=== PATIENT | female | born 1945 | race Caucasian/White ===

== ENCOUNTER 2023-02-16 09:25 | Inpatient (IN) | payer MEDICARE ==
[~2023-02-16] VITALS: Ht 165.1 cm; Wt 76.0 kg
[2023-02-16 09:54] LABS: BASOPHILS # (AUTO) 0.1 X10'3 (0-0.2); BASOPHILS % (AUTO) 0.9 % (0-1); EOSINOPHILS # (AUTO) 0.1 X10'3 (0-0.9); EOSINOPHILS % (AUTO) 1.6 % (0-6); HEMATOCRIT 43.2 % (35.0-45.0); HEMOGLOBIN 14.4 g/dl (12.0-16.0); LYMPHOCYTES # (AUTO) 1.7 X10'3 (1.1-4.8); LYMPHOCYTES % (AUTO) 27.7 % (21-51); MEAN CORPUSCULAR HEMOGLOBIN 29.8 PG (27.0-31.0); MEAN CORPUSCULAR HGB CONC 33.2 g/dL (33.0-36.5); MEAN CORPUSCULAR VOLUME 89.8 FL (78-98); MEAN PLATELET VOLUME 7.7 FL (7.4-10.4); MONOCYTES # (AUTO) 0.4 X10'3 (0-0.9); MONOCYTES % (AUTO) 7.3 % (2-12); NEUTROPHILS # (AUTO) 3.8 X10'3 (1.8-7.7); NEUTROPHILS % (AUTO) 62.5 % (42-75); PLATELET COUNT 308 X10'3 (140-440); RED BLOOD COUNT 4.82 X10'6 (4.20-5.60); WHITE BLOOD COUNT 6.1 X10'3 (4.5-11.0)
[2023-02-16 10:07] LABS: ALANINE AMINOTRANSFERASE 29 U/L (12-78); ALBUMIN 3.9 G/DL (3.4-5.0); ALKALINE PHOSPHATASE 111 IU/L (46-116); ANION GAP 12 (8-16); ASPARTATE AMINO TRANSFERASE 18 U/L (10-37); BLOOD UREA NITROGEN 17 MG/DL (7-18); BUN/CREATININE RATIO 19.1 (10.0-20.0); CALCIUM 9.2 MG/DL (8.5-10.1); CHLORIDE 105 MMOL/L (99-107); CREATININE 0.89 MG/DL (0.40-0.90); GLUCOSE 97 MG/DL (70-104); MAGNESIUM 2.1 MG/DL (1.5-2.4); POTASSIUM 3.7 MMOL/L (3.5-5.1); SODIUM 141 MMOL/L (135-145); TOTAL CARBON DIOXIDE 23.7 MMOL/L (24-32); eCRCL 48 ML/MIN; eGFR 62 ML/MIN
[2023-02-16] MEDS ORDERED: iohexol 350MG/ML 100ml bottle IV ONE (14:38)
[2023-02-16 15:28] LABS: THYROID STIMULATING HORMONE 1.31 ulU/ml (0.34-4.50)
[2023-02-16] MEDS ORDERED: magnesium Cl slow-release 64mg tablet PO PRN (16:25)
[2023-02-16] MEDS ORDERED: acetaminophen 325mg tablet PO PRN (16:25)
[2023-02-16] MEDS ORDERED: potassium Cl 40MEQ/1/2NS 520ml 520 ML IV PRN (16:25)
[2023-02-16] MEDS ORDERED: magnesium 2GM in 50ml NS 50 ML IV PRN (16:25)
[2023-02-16] MEDS ORDERED: ondansetron/PF 4mg/2ml inj IV PRN (16:25)
[2023-02-16] MEDS ORDERED: magnesium hydroxide 30ml (MOM) UD suspension PO PRN (16:25)
[2023-02-16] MEDS ORDERED: potassium Cl 20 mEq SR tablet PO PRN ×2 (16:25)
[2023-02-16] MEDS ORDERED: magnesium 4gm in 100ml NS 100 ML IV PRN (16:25)
[2023-02-16] MEDS ORDERED: mag hydrox/Alum hydrox/simeth 30ml oral suspension PO PRN (16:25)
[2023-02-16] MEDS: normal saline 1000ml 1,000 ML IV SCH (17:12)
[2023-02-16 17:14] LABS: BILIRUBIN,URINE NEGATIVE (Neg); CLARITY,URINE SLIGHTLY CLOUDY (Clear); COLOR,URINE YELLOW (Yellow); GLUCOSE, URINE NEGATIVE (Neg); KETONES,URINE TRACE mg/dl (Neg); LEUKOCYTE ESTERASE ,URINE NEGATIVE (Neg); NITRITES, URINE NEGATIVE (Neg); OCCULT BLOOD,URINE SMALL (Neg); PH,URINE 6.5 (4.8-8.0); PROTEIN,URINE NEGATIVE (Neg); UROBILINOGEN,URINE 0.2 E.U/dL (0.2-1.0)
[2023-02-16 17:19] LABS: UA COLLECTION TYPE CLN CATCH MIDSTREAM
[2023-02-16 17:20] LABS: SQUAMOUS EPITHELIAL CELL,UR MANY /LPF (FEW)
[2023-02-16 17:22] LABS: TRANSITIONAL EPI CELLS,URINE MODERATE /HPF
[2023-02-16 17:23] LABS: HYALINE CASTS 0-3 /LPF (NEGATIVE)
[2023-02-16 17:24] LABS: WBC,URINE 30-50 /HPF (0-4)
[2023-02-16 17:26] LABS: BACTERIA,URINE FEW /HPF (Neg)
[2023-02-16 17:29] LABS: MUCUS STRANDS FEW /LPF (Neg)
[2023-02-16 17:30] LABS: WBC CLUMPS,URINE FEW /HPF (NEGATIVE)
[2023-02-16 17:32] LABS: RBC,URINE 20-50 /HPF (0-2)
[2023-02-16 18:06] LABS: URINE AMPHETAMINE SCREEN NEGATIVE (Neg); URINE BARBITUATE SCREEN NEGATIVE (Neg); URINE BENZODIAZEPINES SCREEN NEGATIVE (Neg); URINE CANNABINOID SCREEN NEGATIVE (Neg); URINE COCAINE SCREEN NEGATIVE (Neg); URINE METHADONE SCREEN NEGATIVE (Neg); URINE OPIATE SCREEN NEGATIVE (Neg); URINE PHENCYCLIDINE SCREEN NEGATIVE (Neg)
[2023-02-16] MEDS ORDERED: DUPI300P SUBCUT (18:45)
[2023-02-16 19:04] LABS: HEMOGLOBIN A1C 5.6 % (4.5-6.2)
[2023-02-16] MEDS: HYDROcodone/acetaminophen 5mg/325mg tablet PO PRN (19:17)
[2023-02-16] MEDS: amLODIPine 5mg tablet PO SCH (19:18)
[2023-02-16] MEDS: K and/or MAG REPLACEMENT MC SCH (19:29)
[2023-02-16 19:33] LABS: APTT 28 SECONDS (22-32); PROTHROMBIN TIME 10.7 SECONDS (9.0-12.0)
[2023-02-16] MEDS: CefTRIAXone/D5W-Rocephin 1gm 50 ML IV SCH (19:36)
[2023-02-16 19:37] LABS: BILIRUBIN,URINE NEGATIVE (Neg); CLARITY,URINE CLEAR (Clear); COLOR,URINE YELLOW (Yellow); GLUCOSE, URINE NEGATIVE (Neg); KETONES,URINE NEGATIVE (Neg); LEUKOCYTE ESTERASE ,URINE NEGATIVE (Neg); NITRITES, URINE NEGATIVE (Neg); OCCULT BLOOD,URINE SMALL (Neg); PROTEIN,URINE NEGATIVE (Neg); UROBILINOGEN,URINE 0.2 E.U/dL (0.2-1.0)
[2023-02-16] MEDS: docusate sod 100mg capsule PO SCH (19:41)
[2023-02-16 19:52] LABS: UA COLLECTION TYPE STRAIGHT CATH
[2023-02-16 19:56] LABS: BACTERIA,URINE FEW /HPF (Neg); MUCUS STRANDS NONE SEEN /LPF (Neg); SQUAMOUS EPITHELIAL CELL,UR FEW /LPF (FEW); WBC,URINE 0-4 /HPF (0-4)
[2023-02-16] MEDS: enoxaparin 40mg/0.4ml syringe SQ SCH (20:16)
[2023-02-17] VITALS (12 sets, daily range): BP systolic 100–154; BP diastolic 49–88; PULSE 80–123; RESP 14–18; TEMP 97.6–98.9; O2SAT 96–99
[2023-02-17] MEDS: HYDROcodone/acetaminophen 5mg/325mg tablet PO PRN ×3 (03:21→17:14)
[2023-02-17] MEDS: normal saline 1000ml 1,000 ML IV SCH ×2 (06:59→20:19)
[2023-02-17] MEDS: docusate sod 100mg capsule PO SCH ×2 (07:54→20:38)
[2023-02-17] MEDS: amLODIPine 5mg tablet PO SCH (07:54)
[2023-02-17] MEDS: K and/or MAG REPLACEMENT MC SCH ×2 (08:00→19:08)
[2023-02-17 08:17] LABS: BASOPHILS % (AUTO) 0.7 % (0-1); EOSINOPHILS # (AUTO) 0.1 X10'3 (0-0.9); HEMATOCRIT 40.5 % (35.0-45.0); HEMOGLOBIN 13.4 g/dl (12.0-16.0); LYMPHOCYTES # (AUTO) 1.8 X10'3 (1.1-4.8); LYMPHOCYTES % (AUTO) 34.5 % (21-51); MEAN CORPUSCULAR HEMOGLOBIN 29.6 PG (27.0-31.0); MEAN CORPUSCULAR HGB CONC 33.2 g/dL (33.0-36.5); MEAN CORPUSCULAR VOLUME 89.3 FL (78-98); MEAN PLATELET VOLUME 7.8 FL (7.4-10.4); MONOCYTES # (AUTO) 0.4 X10'3 (0-0.9); MONOCYTES % (AUTO) 8.3 % (2-12); NEUTROPHILS # (AUTO) 2.8 X10'3 (1.8-7.7); NEUTROPHILS % (AUTO) 54.5 % (42-75); PLATELET COUNT 271 X10'3 (140-440); RED BLOOD COUNT 4.54 X10'6 (4.20-5.60); RED CELL DISTRIBUTION WIDTH 13.9 % (11.5-14.5); WHITE BLOOD COUNT 5.2 X10'3 (4.5-11.0)
[2023-02-17 08:23] LABS: ALBUMIN 3.3 G/DL (3.4-5.0); ANION GAP 8 (8-16); BLOOD UREA NITROGEN 15 MG/DL (7-18); BUN/CREATININE RATIO 16.7 (10.0-20.0); CALCIUM 8.9 MG/DL (8.5-10.1); CHLORIDE 105 MMOL/L (99-107); GLUCOSE 105 MG/DL (70-104); POTASSIUM 3.9 MMOL/L (3.5-5.1); SODIUM 139 MMOL/L (135-145); TOTAL CARBON DIOXIDE 25.7 MMOL/L (24-32); eCRCL 48 ML/MIN; eGFR 61 ML/MIN
[2023-02-17] MEDS ORDERED: metoprolol tartrate 1mg/ml inj IV PRN (08:45)
[2023-02-17] MEDS ORDERED: regadenoson 0.4mg/5ml syringe IV PRN (08:45)
[2023-02-17] MEDS ORDERED: nitroGLYCERIN 0.4mg SUBLingual tab SL PRN (08:45)
[2023-02-17] MEDS ORDERED: aminophylline 250mg/10ml inj. IV PRN (08:45)
[2023-02-17] MEDS: CefTRIAXone/D5W-Rocephin 1gm 50 ML IV SCH (11:27)
[2023-02-17] MEDS ORDERED: GADOTERATE MEGLUMINE 7.5 MMOL/15 ML VIAL IV ONE (12:07)
[2023-02-17] MEDS ORDERED: PERFLUTREN PROTEIN-A MICROSPHR (Optison) 0.22 MG/ML 3ML VIAL IV ONE (16:30)
[2023-02-17] MEDS ORDERED: acetaminophen 325mg tablet PO PRN (19:40)
[2023-02-17] MEDS: enoxaparin 40mg/0.4ml syringe SQ SCH (20:38)
[2023-02-18] MEDS: normal saline 1000ml 1,000 ML IV SCH (02:47)
[2023-02-18 05:45] LABS: BASOPHILS % (AUTO) 0.6 % (0-1); EOSINOPHILS # (AUTO) 0.2 X10'3 (0-0.9); EOSINOPHILS % (AUTO) 3.1 % (0-6); HEMATOCRIT 38.8 % (35.0-45.0); LYMPHOCYTES # (AUTO) 1.7 X10'3 (1.1-4.8); LYMPHOCYTES % (AUTO) 33.8 % (21-51); MEAN CORPUSCULAR HEMOGLOBIN 30.1 PG (27.0-31.0); MEAN CORPUSCULAR HGB CONC 33.6 g/dL (33.0-36.5); MEAN CORPUSCULAR VOLUME 89.6 FL (78-98); MEAN PLATELET VOLUME 7.7 FL (7.4-10.4); MONOCYTES # (AUTO) 0.4 X10'3 (0-0.9); NEUTROPHILS # (AUTO) 2.7 X10'3 (1.8-7.7); NEUTROPHILS % (AUTO) 54.5 % (42-75); PLATELET COUNT 253 X10'3 (140-440); RED BLOOD COUNT 4.34 X10'6 (4.20-5.60); RED CELL DISTRIBUTION WIDTH 13.7 % (11.5-14.5); WHITE BLOOD COUNT 4.9 X10'3 (4.5-11.0)
[2023-02-18 05:49] LABS: ALBUMIN 3.1 G/DL (3.4-5.0); ANION GAP 7 (8-16); BLOOD UREA NITROGEN 11 MG/DL (7-18); BUN/CREATININE RATIO 13.9 (10.0-20.0); CALCIUM 8.2 MG/DL (8.5-10.1); CHLORIDE 106 MMOL/L (99-107); CREATININE 0.79 MG/DL (0.40-0.90); GLUCOSE 101 MG/DL (70-104); POTASSIUM 3.4 MMOL/L (3.5-5.1); SODIUM 139 MMOL/L (135-145); TOTAL CARBON DIOXIDE 25.8 MMOL/L (24-32); eCRCL 55 ML/MIN; eGFR 71 ML/MIN
[2023-02-18 06:00] VITALS: BP 112/55; PULSE 66; RESP 14; TEMP 97.9; O2SAT 93
[2023-02-18] MEDS: K and/or MAG REPLACEMENT MC SCH (08:00)
[2023-02-18] MEDS: CefTRIAXone/D5W-Rocephin 1gm 50 ML IV SCH (08:41)
[2023-02-18] MEDS: amLODIPine 5mg tablet PO SCH (08:42)
[2023-02-18] MEDS: docusate sod 100mg capsule PO SCH (08:42)
[2023-02-18] MEDS ORDERED: LACT1CAP60 PO (09:48)
[2023-02-18] MEDS ORDERED: NOR5T PO (09:48)
[2023-02-18 10:00] VITALS: BP_SYST 110; BP_SYST 117; BP_SYST 125; BP_DIAS 50; BP_DIAS 61; BP_DIAS 66; PULSE 115; PULSE 79; PULSE 84; RESP 16; TEMP 98; O2SAT 94
== END 2023-02-18 13:40 | disposition home or self-care (01) | DRG 689 ==
LOC: ER 09:25 → ED HOLD 16:27 → ORTHO 4S 02-17 07:25
PROVIDERS: ADMIT Family Medicine; ATTEND Family Medicine
PROC: B3251ZZ Computerized Tomography (CT Scan) of Bilateral Common Carotid Arteries using Low Osmolar Contrast (ICD-10-PCS; principal; 2023-02-16)
PROC: B32G1ZZ Computerized Tomography (CT Scan) of Bilateral Vertebral Arteries using Low Osmolar Contrast (ICD-10-PCS; 2023-02-16)
PROC: B32R1ZZ Computerized Tomography (CT Scan) of Intracranial Arteries using Low Osmolar Contrast (ICD-10-PCS; 2023-02-16)
PROC: B3281ZZ Computerized Tomography (CT Scan) of Bilateral Internal Carotid Arteries using Low Osmolar Contrast (ICD-10-PCS; 2023-02-16)
PROC: 4A02XM4 Measurement of Cardiac Total Activity, External Approach (ICD-10-PCS; 2023-02-17)
PROC: 3E073KZ Introduction of Other Diagnostic Substance into Coronary Artery, Percutaneous Approach (ICD-10-PCS; 2023-02-17)
DX: N39.0 Urinary tract infection, site not specified (principal); G93.41 Metabolic encephalopathy; R47.01 Aphasia; R25.1 Tremor, unspecified; R26.81 Unsteadiness on feet; I10 Essential (primary) hypertension; Z20.822 Contact with and (suspected) exposure to COVID-19; M54.9 Dorsalgia, unspecified; Z88.0 Allergy status to penicillin; Z91.09 Other allergy status, other than to drugs and biological substances; R42 Dizziness and giddiness
CPT/HCPCS: 36415; 70450; 70496; 70498; 70553; 71045; 78452; 80048; 80053; 80305; 81001; 82607; 82948; 83036; 83735; 84443; 84484; 85025; 85610; 85730; 87081; 87502; 87503; 87811; 93005; 93017; 93306; 97116; 97161; 97530; 99285; A9500; A9575; C1758; G0378; J0696; J1650; J2405; J2785; J3490; J7030; Q9967